=== PATIENT | female | born 1960 | race Caucasian/White ===

== ENCOUNTER → 2021-02-18 | Outpatient (CLI) | payer OTHER ==
[~2021-02-18] MED LIST: CHOL2000 PO; DOCU100C37 PO; ENAL10TA PO; ENAL20TA16 PO; HYDR-34 PO; HYDR-3583 PO; IBUP-1773 PO; LEVO100T7 PO; LEVO88TA54 PO; LVT.025T PO; MTP100TCR PO; NAPR220T76 PO; SIME80TA16 PO; SIMV20TA26 PO
== END ==
LOC: LABNPT 06:29
PROVIDERS: ATTEND Orthopaedic Surgery
DX: Z53.9 Procedure and treatment not carried out, unspecified reason (principal)